=== PATIENT | female | born 1975 | race Caucasian/White ===

== ENCOUNTER → 2020-03-22 12:28 | Outpatient (CLI) | payer OTHER, SELFPAY ==
--- NOTE | 2020-03-22 | DI.US.S_ITS ---
PROCEDURE: US PERIPH VENOUS LOW EXTREM LT INDICATIONS: Chronic embolism and thrombosis TECHNIQUE: Real-time imaging, as well as color and pulse Doppler interrogation, were performed of the lower extremity deep veins from the inguinal ligament to the popliteal fossa. COMPARISON: None. FINDINGS: Partially occlusive thrombus identified in the distal common femoral vein. he superficial femoral and popliteal veins are normally compressible, and free of intraluminal thrombus. Color and pulse Doppler demonstrate normal phasic intraluminal flow. There is normal augmentation response to distal compression maneuver. IMPRESSION: Abnormal study demonstrating partial, nonocclusive thrombus involving the distal left common femoral vein. Dictated by: Myriam Means MD, PhD on 03/22/2020 at 14:09 Approved by: Myriam Means MD, PhD on 03/22/2020 at 14:10
== END ==
PROVIDERS: PCP Physician Assistant Medical; Referring Provider Physician Assistant Medical; Visit Provider Physician Assistant Medical
DX: I82.512 Chronic embolism and thrombosis of left femoral vein (principal)
CPT/HCPCS: 93971

== ENCOUNTER → 2020-07-21 11:35 | Outpatient (CLI) | payer OTHER, SELFPAY ==
[2020-07-21 20:31] LABS: COVID19 - ORCAS (NP or Nasal) Negative (Negative)
== END ==
PROVIDERS: PCP Physician Assistant Medical; Visit Provider Physician Assistant Medical
DX: Z01.818 Encounter for other preprocedural examination (principal)
CPT/HCPCS: U0003

== ENCOUNTER → 2020-09-29 11:58 | Outpatient (CLI) | payer OTHER, SELFPAY ==
--- NOTE | 2020-09-29 11:59 | DI.US.S_ITS ---
PROCEDURE: US PELVIC COMPLETE INDICATIONS: ABNORMAL FINDING IN VASCULAR IMAGING AT TECHNIQUE: Real-time scanning was performed of the pelvic organs, with image documentation. Additional endovaginal scanning was necessary due to incomplete visualization of the adnexal and endometrial structures by transabdominal scanning. COMPARISON: [facility], RG, CT VENOGRAM ABDOMEN / PELVIS W/CONTRA, 07/14/2020, 10:50. FINDINGS: Uterus: The uterus is anteverted and enlarged measuring 11.6 x 6.5 x 7.9 cm. The myometrium is slightly heterogeneous but without dominant mass. The endometrium is diffusely thickened measuring 2.5 cm in width and contains trace amount of fluid at the fundus. No abnormal uterine vascularity. There are numerous nabothian cysts in the cervix resulting in slight prominence of the cervix. No solid cervical masses were seen. Ovaries: Right ovary measures 2.7 x 2.0 x 2.3 cm. Left ovary measures 3.7 x 3.2 x 3.5 cm. The left ovary contains a 3.0 cm simple cyst. Other: No pathologic free abdominal or pelvic fluid. IMPRESSION: 1. Thickened endometrial stripe at side limits of normal. While this may be secondary to patient's point in the menstrual cycle, pathology is not excluded. Correlate with any abnormal bleeding history and consider follow-up in six weeks at a different point in the patient's menstrual cycle. 2. Numerous simple nabothian cysts throughout the cervix. No definite cervical mass. Correlate with Pap smear. 3. 3.0 cm left ovarian cyst. Dictated by: Concetta Snyder M.D. on 09/29/2020 at 18:31 Approved by: Concetta Snyder M.D. on 09/29/2020 at 18:37
== END ==
PROVIDERS: PCP Physician Assistant Medical; Referring Provider Physician Assistant Medical; Visit Provider Physician Assistant Medical
DX: N80.9 Endometriosis, unspecified (principal); N88.8 Other specified noninflammatory disorders of cervix uteri; I82.502 Chronic embolism and thrombosis of unspecified deep veins of left lower extremity; N83.202 Unspecified ovarian cyst, left side
CPT/HCPCS: 76830; 76856

== ENCOUNTER → 2021-02-09 15:53 | Outpatient (CLI) | payer OTHER, SELFPAY ==
[2021-02-09 17:26] LABS: COVID19 -Nasal RAPID Negative (Negative)
== END ==
PROVIDERS: PCP Physician Assistant Medical; Visit Provider Obstetrics & Gynecology
DX: Z01.812 Encounter for preprocedural laboratory examination (principal); Z20.822 Contact with and (suspected) exposure to COVID-19
CPT/HCPCS: 87635

== ENCOUNTER 2021-02-10 08:13 | Inpatient (IN) | payer OTHER, SELFPAY ==
[2021-02-08 08:39] VITALS: BMI 27.1
[2021-02-10] VITALS (19 sets, daily range): BP systolic 78–106; BP diastolic 46–63; PULSE 86–109; RESP 11–24; TEMP 35.8–37.3; O2SAT 8–100; BMI 27.1
--- NOTE | 2021-02-10 | PATH_ITS ---
[facility] Accession Number: [id number] . 01 Material submitted: . uterus - UTERUS, LEFT FALLOPIAN TUBE AND OVARY, RIGHT FALLOPIAN TUBE . 02 Diagnosis: Uterus, Left Fallopian Tube and Ovary, Right Fallopian Tube, Attempted Laparoscopic Supracervical Hysterectomy Converted to Open Abdominal Supracervical Hysterectomy, Left Salpingo-oophorectomy, Right Salpingectomy (Weight 183 grams): Dys-synchronous endometrium; negative for glandular hyperplasia, cytologic atypia, or malignancy. Myometrium with with a minute leiomyoma (approximatley 2 mm) and otherwise no significant histomorphologic abnormality. Uterine serosa with no abnormality by gross examination. Left ovary with a benign serous cyst (3 mm), benign cystic corpora lutea, minute, benign cortical inclusions cysts, and capsular involvement by endometriosis. Complete cross sections of left fallopian tube (clip identifed at gross examination) with patchy adhesions associated with involvement by endometriosis. Complete cross sections of right fallopian tube with benign paratubal cysts, serosal adhesions, and involvement by endometriosis. [facility] 02/14/2021 1211 Local . 02 Electronically signed: . Arline Richard MD, Pathologist NPI- [id number] . 01 Gross description: . Received in formalin labeled with the patient's name and uterus, left ovary and fallopian tube, right fallopian tube is a 183 gram supracervical hysterectomy specimen. The uterus measures 7.3 cm cornu to cornu, 5.8 cm anterior to posterior, and 7.4 cm fundus to lower uterine segment. The attached left fallopian tube measures 10.3 cm in length x 0.6 cm in diameter and the attached left ovary measures 3.0 x 1.8 x 1.4 cm. A clip is present on the left fallopian tube. The right fallopian tube is detached and measures 9.0 cm in length x 0.6 cm in diameter. The serosa is predominantly smooth. No lesions are identified within the endometrial cavity or myometrium. The ovary has a berkowitz-white to berkowitz-yellow cut surface. Quad Stayer sections are submitted as follows: . A1 - Anterior lower uterine segment. A2 - Posterior lower uterine segment. A3 - Anterior endomyometrium. A4 - Posterior endomyometrium. A5 - Left ovary. A6 - Left fallopian tube cross sections and fimbriated end. A7 - Right fallopian tube cross sections and fimbriated end. (ANGELIC:[id number]) /[facility] 02/11/2021 1543 Local . 02 Pathologist provided ICD-10: N85.00, N80.9 . 02 CPT . 960273 Performed at: 01 [facility] Cytology [address] [id number] MD Kane Greer MD Phone: [phone] Performed at: 02 [facility] [address] [place] [id number] MD Ani Hays MD Phone: [phone]
[2021-02-10] MEDS: LACTATED RINGERS 1,000 ML 100 ML IV ×3 (08:28→14:48)
[2021-02-10] MEDS: ACETAMINOPHEN 325 MG TABLET 975 MG PO (08:31)
--- NOTE | 2021-02-10 08:58 | PM.PREOP ---
Pre-operative Note COVID-19 COVID-19 status: Negative Result date/Date tested (Pos, Neg/Pending): 02/09/21 Interval Note History & Physical reviewed/Exam performed by Physician: Yes Changes to H&P: No H&P completed within 30 days and has changed as indicated here:: 02/09/21
[2021-02-10] MEDS: CEFAZOLIN 2 GM/20 ML SYRINGE IV (09:20)
--- NOTE | 2021-02-10 10:02 | SUR.OPER ---
Lithotomy on padded OR bed. [place] Pad Positioner under torso. Head on pillow, arms padded and tucked at sides. Legs secured in padded yellow fins stirrups.
[2021-02-10] MEDS: BUPIVACAINE 0.5% (PF) VIAL 30 ML INJ (10:09)
[2021-02-10] MEDS: EPINEPHrine 1 MG/ML 0.15 MG INJ (10:09)
[2021-02-10] MEDS: ROPIVACAINE 0.2% PF 2 MG/ML 10ML AMP 10 ML INJ (10:11)
--- NOTE | 2021-02-10 12:39 | PM.GYNOP.1 ---
Operative Date/Time/Diagnoses Date of procedure: 02/10/21 Time of procedure: 12:39 Pre-op diagnosis: Severe dysmenorrhea h/o endometriosis Post-op diagnosis: same Procedure & Clinicians Procedure: Procedures Operation Date: 02/10/21 09:15 Actual Procedure Side Surgeon p Laparoscopic Supracervical Hysterectomy W/ Bilateral Salpingectomy-ATTEMPTED, CONVERTED TO OPEN abdominal supracervical hysterectomy, left salpingo-oophorectony, right salpingectomy Kathleen Truong MD Surgeon: Kathleen Truong Residential Electrician: Alden Hess Anesthesia Type: General and Local Operative Notes Findings: 8 week size stock uterus Right adnexal to posterior uterus adhesions Appendix to right adnexal adhesions Left adnexal to posterior uterus and colon adhesions Colon to posterior uterus adhesions Closure Type: primary Specimen(s): right tube, left tube & ovary and uterus Applied: catheter (To continuous drainage) Estimated blood loss (mL): 75 Blood products transfused: none Complications: none Post-operative Condition: stable Disposition: PACU Plan for aftercare: To Acute Care after Recovery
[2021-02-10] MEDS: fentaNYL 100 MCG/2 ML INJ IV ×2 (12:41→13:23)
[2021-02-10] MEDS: METOCLOPRAMIDE 10 MG/2 ML INJ IV (12:41)
[2021-02-10] MEDS: ONDANSETRON 4 MG/2 ML INJ IV ×2 (12:42→18:41)
[2021-02-10] MEDS: hydrOXYzine 50 MG/ML INJ 25 MG IM (13:25)
--- NOTE | 2021-02-10 14:31 | P.OP_ITS ---
Operative Date/Time/Diagnoses Date of procedure: 02/10/21 Time of procedure: 12:37 Pre-op diagnosis: Dysmenorrhea Endometriosis Post-op diagnosis: same Procedure & Clinicians Procedure: Procedures Operation Date: 02/10/21 09:15 Actual Procedure Side Surgeon p Laparoscopic Supracervical Hysterectomy W/ Bilateral Salpingectomy-ATTEMPTED, CONVERTED TO OPEN abdominal supracervical hysterectomy, left salpingo- oophorectony, right salpingectomy Kathleen Truong MD Indications: Dysmenorrhea Endometriosis Surgeon: Kathleen Truong Medical Aides Teacher: Alden Hess Anesthesia Type: General and Local Operative Notes Findings: 8 week size stock uterus Obliteration of the posterior cul-de-sac Right tube adhesed to the uterus Left ovary and tube adhesed to the uterus Colon stuck to the posterior uterus and cervix Appendix adhered to the right ovary Closure Type: primary Specimen(s): right tube, left tube & ovary and uterus Applied: catheter (To continuous drainage) Estimated blood loss (mL): 100 Blood products transfused: none Procedure in detail: The patient was taken to the operating room where she was placed in the dorsal supine position. After adequate general endotracheal anesthesia was achieved, she was placed in the dorsal lithotomy position, and prepped and draped in the usual sterile fashion. A time-out was performed. A bivalve speculum was placed into the vagina and the anterior lip of the cervix was grasped with a single- tooth tenaculum. The cervical os was sequentially dilated until the Zumi uterine manipulator could pass easily into the endometrial cavity. The single- tooth tenaculum was removed from the anterior lip of the cervix. The bivalve speculum was removed from the vagina. Attention was then turned to the abdomen where 6 cc of 0.5% Marcaine with epinephrine were injected in the umbilical fold. A 5 mm incision was made. The Veress needle was placed into the peritoneal cavity, and its placement confirmed by aspiration and drop test. Removed the abdominal cavity was insufflated with 4.0 L of CO2. The Veress needle was removed, and a 5 mm trocar was placed without difficulty. A second incision was made 4 cm lateral to the midline on the left side after 6 cc of 0.5% Marcaine with epinephrine were injected. A 5 mm incision was made. A 5 mm trocar was placed under direct visualization. Assessment of the pelvis and abdomen revealed the findings noted above. Due to the dense adhesions and inability to safely remove the colon from the uterus and take down all of the adhesions, a decision was made to proceed with a laparotomy. The instruments were removed from the abdomen. The CO2 was allowed to escape. The trocars were removed. A Pfannenstiel skin incision was made through the previous incision and carried through to the underlying layer of fascia. The fascia was nicked in the midline at the incision extended bilaterally with the Resendez scissors. The superior aspect of the fascial incision was grasped with the Yessy clamps, e levated, and the underlying rectus muscles dissected off sharply and bluntly. Attention was then turned to the inferior aspect of this incision which in a similar fashion was grasped with the Yessy clamps, elevated, and the underlying rectus muscles dissected off sharply and bluntly. The rectus muscles were in the midline. The peritoneum was identified, grasped between 2 hemostats, and entered sharply with the Metzenbaum scissors. This incision was extended superiorly and inferiorly with good visualization of the bladder. The O'Pawel O'Cervantes retractor was placed into the incision, and the bowel packed away with moist lap sponges. The bladder blade was placed. The uterus was grasped with 4 tooth tenaculum. The bowel was sharply and bluntly taken down off of the posterior uterus using the Metzenbaum scissors and bluntly with fingers. The right tube was grasped with a [place]. The adhesion between the appendix and the right ovary were released from the ovary using the Metzenbaum scissors. The utero-ovarian vessels were clamped, transected, and suture ligated with 0 Vicryl. The mesosalpinx was cauterized all the way down to the fundus of the uterus. The round ligament was doubly clamped, transected, and suture ligated with 0 Vicryl. The broad ligament was doubly clamped, cut, and suture ligated with 0 Vicryl. The bladder flap was gently created using the Metzenbaum scissors and the bladder was taken down off of the lower uterine segment and cervix. Posteriorly the bowel was taken down off of the posterior cervix using the Metzenbaum scissors. The uterine arteries on the right side were clamped, transected, and suture ligated with 0 Vicryl. This was all repeated on the patient's left side after the adhesions were taken down, but the infundibulopelvic ligament on the left side was doubly clamped, cut, and suture ligated with 0 Vicryl. The left ovary was included in the specimen due to the dense adhesions and endometriosis. The round ligament was clamped, transected, and suture ligated with 0 Vicryl. The broad ligament was clamped, transected, and suture ligated with 0 Vicryl. The remainder of the bladder flap was created and the bladder was taken down off the lower uterine segment and cervix. The uterine arteries on the left side were clamped, transected, and suture ligated with 0 Vicryl. The uterus was amputated from the cervix using the 10. Blade. The endocervical canal was extensively cauterized with the Bovie. The cervix was closed with a series of simple interrupted sutures using 0 Vicryl. The pelvis and abdomen were copiously irrigated with warm normal saline. There was a raw base in the posterior cul-de-sac and Gelfoam was placed for hemostasis. The lap sponges were removed from the abdomen. The O'Pawel O'Cervantes retractor was removed from the incision. The peritoneum was closed using 2 0 Vicryl in a running fashion. The fascia was reapproximated using 0 Vicryl in a running fashion. The subcutaneous layer was copiously irrigated with warm normal saline. Six simple interrupted sutures with 3-0 Vicryl were placed to reapproximate the subcutaneous layer. The skin was closed with 4-0 Monocryl in a subcuticular fashion. Steri-Strips and an Aquacel dressing were placed. Sponge, lap, and instrument counts were correct x2. The patient tolerated the procedure well, and was taken to PACU in stable condition. Complications: none Post-operative Condition: stable Disposition: PACU Plan for aftercare: To Acute care after recovery
[2021-02-10] MEDS: KETOROLAC 30 MG/ML VIAL IV ×2 (14:49→20:10)
[2021-02-10] MEDS: OXYCODONE IR 5 MG TABLET PO (16:27)
[2021-02-10] MEDS: IBUPROFEN 600 MG TABLET PO (17:11)
--- NOTE | 2021-02-10 19:34 | PC.NURSE ---
Pt arrived from PACU at approx 1430. Drowsy but oriented. Drsg c/d/i. Valentin draining to gravity. SCD's on. IVF per orders. Supportive Spouse at bedside. Medicating per mar for post-op pain and nausea. Calling appropriately for needs.
[2021-02-10] MEDS: DOCUSATE 100 MG CAPSULE 200 MG PO (20:10)
[2021-02-10] MEDS: OXYCODONE IR 5 MG TABLET 10 MG PO (22:15)
[2021-02-10] MEDS: ACETAMINOPHEN 325 MG TABLET 650 MG PO (22:16)
[2021-02-11] MEDS: LACTATED RINGERS 1,000 ML 100 ML IV ×2 (00:42→09:52)
[2021-02-11] MEDS: KETOROLAC 30 MG/ML VIAL IV ×2 (02:37→07:35)
[2021-02-11 03:00] VITALS: BP 91/50; PULSE 94; RESP 16; TEMP 37.2; O2SAT 98
[2021-02-11 06:25] LABS: Add Manual Diff / Slide Review NO; Basophils Absolute Auto 0 /uL (0-100); Basophils Percent Auto 0.5 % (0-2); Eosinophils Absolute Auto 100 /uL (0-450); Eosinophils Percent Auto 0.9 % (2-4); Hematocrit 32.1 % (36-46); Hemoglobin 11.4 g/dL (12.0-16.0); Lymphocytes Absolute Auto 1200 /uL (1100-4500); Mean Corpuscular HGB Conc 35.6 % (30-36); Mean Corpuscular Hemoglobin 31.8 PG (26-34); Mean Corpuscular Volume 89.4 fL (80-100); Monocytes Absolute Auto 800 /uL (0-900); Monocytes Percent Auto 10.5 % (3-14); Neutrophils Absolute Auto 5400 /uL (1500-7000); Neutrophils Percent Auto 72.1 % (50-75); Platelet Count 164 X10^3/uL (150-400); Red Blood Cell Count 3.59 X10^6/uL (4.0-5.2); Red Cell Distribution Width 12.7 % (11.6-14.8); White Blood Cell Count 7.6 X10^3/uL (4.5-11.0)
[2021-02-11 06:56] LABS: BUN Creatinine Ratio 17.9 (6-22); Blood Urea Nitrogen 10 mg/dL (7-17); Calcium 8.4 mg/dL (8.4-10.2); Carbon Dioxide 31 mmol/L (22-32); Chloride 107 mmol/L (98-107); Estimated Glomerular Filt Rate > 60.0 mL/min (>60); Glucose 98 mg/dL (70-100); HEMOLYSIS < 15 (0-50); Potassium 4.1 mmol/L (3.4-5.1); Sodium 138 mmol/L (137-145)
[2021-02-11 08:46] VITALS: BP 93/56; PULSE 91; RESP 19; TEMP 36.8; O2SAT 98
[2021-02-11] MEDS: DOCUSATE 100 MG CAPSULE 200 MG PO ×2 (09:28→20:21)
[2021-02-11] MEDS: ENOXAPARIN 40 MG/0.4 ML SYRINGE SUBCUT (09:28)
[2021-02-11] MEDS: OXYCODONE IR 5 MG TABLET 10 MG PO ×2 (09:30→14:42)
--- NOTE | 2021-02-11 09:56 | PC.NURSE ---
Patient alert, oriented rates pain to abdomen 5/10 given 10mg oxycodone. WIth assistance patient stood at the side of the bed, denies dizziness. Valentin catheter removed at 0930 patient tolerated well. Patient bathed and assisted back to bed.
--- NOTE | 2021-02-11 12:28 | CM.DANOTE ---
Discharge Assmt Patient is 45yo Female who had hysterectomy performed by Dr. Truong. Patient recovering well and reported pain is managed at this time. Patient resides with spouse and her six year old child at home. Patient reported being fully independent with ADLs and in community. Patient's spouse reported patient has a staff to use as needed for ambulation. Patient reported no concerns for discharge home when medically stable. Patient reported one level home with no issues using stairs. Ins: [employer] P: patient is anticipated to discharge home when medically stable, spouse will provide transportation, ASSISTANT FLOOR COVERING PRINTER asked to provide priority boarding ferry pass at time of discharge. CABLE DRILLER will continue to follow throughout clinical course of admission. Mitchell SARMIENTO Discharge Planning/Care Management CM Discharge Assessment Start: 02/11/21 12:25 Freq: Status: Active Protocol: Document 02/11/21 12:25 JEFFERY (Rec: 02/11/21 12:28 [id number]) Discharge Planning Assessment Assigned Venetian Blind Washer Mitchell WASHINGTONSW DPOA/Assigned Designee Name Spouse Luis Fernando Contact Information [phone] Advance Directives? No History Provided By Patient Has Patient been admitted in last 30 No days? Prior Living Arrangements House Household Members spouse,children Type of transporation used prior to Drives own vehicle admit Independent with ADL's Yes Is patient alert and oriented? Yes Caregiver for Another Yes: 6yo child Barriers to Discharge No Discharge Plan Home Transportation Arrangement Spouse Luis Fernando who requested ferry priority boarding asst Referrals Initiated None needed Whiteboard Updated in Patient Room with Yes name and ext. # of Venetian Blind Washer Review Status In Process Next Review Type Continued Stay Review Pre-Anesthesia Assessment Start: 02/08/21 08:39 Freq: Status: Complete Protocol: Document 02/08/21 08:39 CAB (Rec: 02/08/21 08:46 CAB [id number]) Pre-Anesthesia Assessment Patient Information Reviewed Via Chart Review Comment COVID screen @ 02/09/21 Specialist Seen Glass Checker Primary Language Peruvian Hat Cutter Required No Height 170.18 cm Weight 78.471 kg Body Mass Index (BMI) 27.1 Barriers to Learning None Hx Anesthesia Reactions No Anesthesia Review Requested No Label Stamper No Smoking Status Never smoker Pain Present Pain Reported History of Falling (Recent or History of No ) Patient is completely paralyzed or No completely immobile Mental Status Oriented to own ability Is patient on oxygen? No Hx Sleep Apnea No Currently Taking a Beta [place] No Anti-Coagulant Therapy Yes: ASA 81mg - DVT w/iliac stent placed Has a Easter Bunny No Cardiac Testing No Hx Pacemaker/ICD No Pacemaker Rep Required? No Cardiac Clearance Received Not Applicable Urinary Catheter Present No Hx Urinary Self Catheterization No Diabetes No Patient No Presence of External or Internal Medical Yes: Iliac stent Devices Marital Status Lives With spouse,children Patient Discharge Plan Description Return Home
[2021-02-11] MEDS: ACETAMINOPHEN 325 MG TABLET 650 MG PO (13:25)
--- NOTE | 2021-02-11 14:52 | PC.NURSE ---
AMBULATING LAPS WITH ,VOIDING WITHOUT DIFFICULTY,PASSING FLATUS, IV HL,ADVANCED TO FULL LIQUIDS FOR DINNER
[2021-02-11 19:46] VITALS: BP 94/59; PULSE 99; RESP 16; TEMP 37.2; O2SAT 98
[2021-02-11] MEDS: IBUPROFEN 600 MG TABLET PO (20:21)
[2021-02-11] MEDS: OXYCODONE IR 5 MG TABLET PO (20:21)
[2021-02-11] MEDS: SODIUM CHLORIDE 0.9% FLUSH 10 ML IV (20:25)
[2021-02-12] MEDS: IBUPROFEN 600 MG TABLET PO ×2 (03:32→08:59)
[2021-02-12] MEDS: OXYCODONE IR 5 MG TABLET PO ×2 (03:32→08:12)
[2021-02-12 06:00] VITALS: BP 113/68; PULSE 99; RESP 16; TEMP 37.4; O2SAT 99
--- NOTE | 2021-02-12 07:42 | PM.PNPO.1 ---
Subjective Subjective Date Patient Seen: 02/11/21 Time Patient Seen: 10:15 Interval history: Patient is a 45-year-old 4 para 4 postop day # 1 status post laparoscopy converted to exploratory laparotomy with supracervical hysterectomy/left salpingo-oophorectomy/right salpingectomy and extensive lysis of adhesions Valentin catheter has been removed. She has not voided as of yet. Not passing gas. No nausea or vomiting. Pain is well controlled. Exam Vital Signs (past 8 hours): - 02/12/21 06:00 Temperature 99.4 F Pulse Rate 99 H Respiratory Rate 16 Blood Pressure 113/68 Pulse Oximetry 99 Oxygen Delivery Method Room Air Oxygen Flow Rate 0 Narrative Exam Narrative: Generally: Patient is sitting up in bed, no acute distress Lungs: Clear to auscultation bilaterally Abdomen: Soft and flat. Decreased bowel sounds Incisions: Clean dry and intact with dressings Extremities: Negative Homans, no edema Objective Labs Result Diagrams: 02/11/21 06:09 02/11/21 06:09 [facility] Medical History (Updated 02/10/21 @ 06:53 by Kathleen Truong MD) Abnormal Pap smear of cervix (~2008) Chronic embolism and thrombosis of unspecified deep veins of left lower extremity (~2014) DVT (deep vein thrombosis) in (2014) Dysmenorrhea (~2007) Endometriosis (~2008) May-Thurner syndrome Surgical History (Updated 11/04/20 @ 14:36 by Luisa Woods) Anesthesia History of section S/P insertion of iliac artery stent (~07/2020) Social History household members: spouse and children Smoking Status: Never smoker alcohol intake: never Assessment & Plan Post-op Postoperative Procedures: Procedures Operation Date: 02/10/21 09:15 Actual Procedure Side Surgeon p Laparoscopic Supracervical Hysterectomy W/ Bilateral Salpingectomy-ATTEMPTED, CONVERTED TO OPEN abdominal supracervical hysterectomy, left salpingo-oophorectony, right salpingectomy Kathleen Truong MD Postoperative day: 1 Postoperative status: doing well Postoperative plan: routine post-op care, ambulate, advance diet and voiding trials Time Spent With Patient Time with patient: 15-24 minutes
--- NOTE | 2021-02-12 07:45 | PM.PNPO.1 ---
Subjective Subjective Date Patient Seen: 02/12/21 Time Patient Seen: 07:45 Interval history: Patient is a 45-year-old 4 para 4 postop day # 2 status post laparoscopy that was converted to abdominal supracervical hysterectomy/LSO/right salpingectomy/extensive lysis of adhesions. She has voided without the catheter. She is tolerating an advanced diet. She has ambulated. Her pain is well controlled. No nausea or vomiting. Exam Vital Signs (past 8 hours): - 02/12/21 06:00 Temperature 99.4 F Pulse Rate 99 H Respiratory Rate 16 Blood Pressure 113/68 Pulse Oximetry 99 Oxygen Delivery Method Room Air Oxygen Flow Rate 0 Narrative Exam Narrative: Generally: Patient is sitting up at edge of bed, no acute distress Lungs: Clear to auscultation bilaterally Cardiovascular: Regular rate and rhythm Abdomen: Good bowel sounds in all 4 quadrants Extremities: Negative Homans, no edema Objective Labs Result Diagrams: 02/11/21 06:09 02/11/21 06:09 [facility] Medical History (Updated 02/10/21 @ 06:53 by Kathleen Truong MD) Abnormal Pap smear of cervix (~2008) Chronic embolism and thrombosis of unspecified deep veins of left lower extremity (~2014) DVT (deep vein thrombosis) in (2014) Dysmenorrhea (~2007) Endometriosis (~2008) May-Thurner syndrome Surgical History (Updated 11/04/20 @ 14:36 by Luisa Woods) Anesthesia History of section S/P insertion of iliac artery stent (~07/2020) Social History household members: spouse and children Smoking Status: Never smoker alcohol intake: never Assessment & Plan Post-op Postoperative Procedures: Procedures Operation Date: 02/10/21 09:15 Actual Procedure Side Surgeon p Laparoscopic Supracervical Hysterectomy W/ Bilateral Salpingectomy-ATTEMPTED, CONVERTED TO OPEN abdominal supracervical hysterectomy, left salpingo-oophorectony, right salpingectomy Kathleen Truong MD Postoperative day: 2 Postoperative status: doing well Postoperative plan: discharge Postoperative plan narrative: Discharge to home Follow-up February 23, 2021 on [facility] Patient to call with fever, chills, redness or drainage around the incisions Patient is not to take her baby aspirin while she is doing Lovenox Time Spent With Patient Time with patient: 15-24 minutes
--- NOTE | 2021-02-12 07:47 | PM.DS.1 ---
History of Present Illness History of Present Illness Date Patient Seen: 02/12/21 Time Patient Seen: 07:47 Chief complaint: LAP SUPRACERVICAL HYSTERECTOMY *OPB* Narrative: Patient is a 45-year-old 4 para 4 who presented on 02/10/2021 for a scheduled laparoscopic supracervical hysterectomy. Due to an obliterated posterior cul-de-sac and extensive endometriosis, she was converted to an exploratory laparotomy with abdominal supracervical hysterectomy/left salpingo-oophorectomy/right salpingectomy/extensive lysis of adhesions. Her postoperative course has been fairly unremarkable. Her diet was advanced yesterday. She is passing flatus. No nausea or vomiting. She is ambulating. She has voided without the catheter. Discharge Providers Provider Date of admission: 02/10/21 Discharge Date: 02/12/21 Primary care physician: Ani Elmore PA-C Discharge provider: Kathleen Truong MD Summary Hospital Course Discharge Diagnosis: Dysmenorrhea Severe endometriosis Extensive pelvic adhesions Laparoscopy Exploratory laparotomy with supracervical hysterectomy/LSO/left salpingectomy/extensive lysis of adhesions Hospital Course: Patient is a 45-year-old 4 para 4 who presented on February 10, 2021 for a scheduled laparoscopic supracervical hysterectomy with bilateral salpingectomy. On laparoscopic inspection her posterior cul-de-sac was obliterated and she had extensive bowel to uterine and adnexal adhesions. A decision was made to proceed with exploratory laparotomy. She underwent exploratory laparotomy with supracervical hysterectomy/left salpingo-oophorectomy/right salpingectomy/extensive lysis of adhesions without complication. Her postoperative course was fairly unremarkable. On postop day # 1 her Valentin catheter was removed and she was able to void without the catheter. She was started on clear liquids and advanced. She is passing flatus. No nausea or vomiting. She is ambulating. Her pain is well controlled. Status at Discharge Cognitive/behavioral status at discharge: oriented Functional status at discharge: independent ambulation Overall status at discharge: patient is progressing back to baseline Time Spent with Patient Time spent: Less than 30 minutes Exam Vital Signs (past 8 hours): - 02/12/21 06:00 Temperature 99.4 F Pulse Rate 99 H Respiratory Rate 16 Blood Pressure 113/68 Pulse Oximetry 99 Oxygen Delivery Method Room Air Oxygen Flow Rate 0 Narrative Exam Narrative: Generally: Patient is sitting up on edge of bed, no acute distress Lungs: Clear to auscultation bilaterally Abdomen: Soft and flat. Good bowel sounds in all 4 quadrants. Incisions: Clean dry and intact with bandages Extremities: Negative Homans, no edema Objective Labs Result Diagrams: 02/11/21 06:09 02/11/21 06:09 [facility] Medical History (Updated 02/10/21 @ 06:53 by Kathleen Truong MD) Abnormal Pap smear of cervix (~2008) Chronic embolism and thrombosis of unspecified deep veins of left lower extremity (~2014) DVT (deep vein thrombosis) in (2014) Dysmenorrhea (~2007) Endometriosis (~2008) May-Thurner syndrome Surgical History (Updated 11/04/20 @ 14:36 by Luisa Woods) Anesthesia History of section S/P insertion of iliac artery stent (~07/2020) Social History household members: spouse and children Smoking Status: Never smoker alcohol intake: never Discharge Plan Discharge Plan Patient Disposition: Home Provider Discharge Comment: Call with fever, chills, redness or drainage around the incisions Ibuprofen 600 mg every 6 hours as needed Tylenol 650 mg every 6 hours as needed Discharge orders & Medications Discharge Orders: Discharge (Order); Ordered 02/12/21 Ordered By: Kathleen Truong Prescriptions: New oxycodone 5 mg tablet 5 mg PO Q4H PRN (Reason: pain) Qty: 30 0RF enoxaparin [Lovenox] 40 mg/0.4 mL syringe 40 mg SUBCUT DAILY Qty: 4 3RF Discontinued enoxaparin [Lovenox] 40 mg/0.4 mL syringe 40 mg SUBCUT DAILY Qty: 12 0RF aspirin 81 mg tablet,delayed release (DR/EC) 81 mg PO DAILY 0RF Follow up/Referrals: Kathleen Truong MD [Physician] - 02/23/21 (My office will call to give her the time of her appointment on [facility] on February 23, 2021) Diet/Activity/Treatments Diet: Diet as Tolerated Activity: No heavy lifting. Nothing more than a gal of milk Skin/Wound/Dressing Care Report to your healthcare provider any signs of infection, such as:: chills, fever, increased pain, unusual drainage and unusual redness Dressing: Remove outer pink dressings with attached gauze in 3 days after morning shower Remove brown, Aquacel, dressing on the lower incision on Visit Report/Discharge Packet Instructions: DI for Exploratory Laparotomy, DI for Hysterectomy, DI for Laparoscopy, DI for Prescription Opioid Use Stand Alone Forms: Surgery Discharge Discharge Data Primary Care Provider: Ani Elmore Attending Provider: Kathleen Truong
[2021-02-12] MEDS: DOCUSATE 100 MG CAPSULE 200 MG PO (08:12)
[2021-02-12] MEDS: ENOXAPARIN 40 MG/0.4 ML SYRINGE SUBCUT (08:12)
--- NOTE | 2021-02-12 09:13 | PC.NURSE ---
Went over dc instructions and medications with patient,questions answered. [place] didn't open until 1000 [place]30 ferry. Lovenox rx called to [facility]. Patient taken via [place] to vehicle driven by spouse. Patient had all belongings.
== END 2021-02-12 09:15 | disposition home or self-care (01) | DRG 743 ==
LOC: OR 08:13 → AC 02-11 13:53
PROVIDERS: Admitting Provider Obstetrics & Gynecology; PCP Physician Assistant Medical; Referring Provider Obstetrics & Gynecology; Visit Provider Obstetrics & Gynecology
PROC: 0UT94ZL Resection of Uterus, Supracervical, Percutaneous Endoscopic Approach (ICD-10-PCS; principal; 2021-02-10 09:15)
DX: N80.0 Endometriosis of uterus (principal); N94.6 Dysmenorrhea, unspecified; N73.6 Female pelvic peritoneal adhesions (postinfective); Z20.822 Contact with and (suspected) exposure to COVID-19
CPT/HCPCS: 36415; 58180; 80048; 85025; J0171; J0330; J0690; J1100; J1650; J1885; J2250; J2405; J2704; J2765; J2795; J3010; J3410

== ENCOUNTER → 2021-04-06 11:41 | Outpatient (CLI) | payer OTHER, SELFPAY ==
[2021-02-10 17:01] VITALS: BMI 27.1
== END ==
PROVIDERS: PCP Physician Assistant Medical; Referring Provider Physician Assistant; Visit Provider Physician Assistant
DX: R39.15 Urgency of urination (principal)
CPT/HCPCS: 87077; 87086; 87186

== ENCOUNTER → 2021-06-24 08:40 | Outpatient (CLI) | payer OTHER, SELFPAY ==
[2021-02-10 17:01] VITALS: BMI 27.1
[2021-06-24 19:53] LABS: COVID19 - ORCAS (NP or Nasal) Negative (Negative)
== END ==
PROVIDERS: PCP Physician Assistant Medical; Visit Provider Physician Assistant
DX: Z20.822 Contact with and (suspected) exposure to COVID-19 (principal)
CPT/HCPCS: U0003

== ENCOUNTER → 2023-04-02 10:41 | Outpatient (CLI) | payer OTHER, SELFPAY ==
[2021-06-27 13:25] VITALS: BMI 27.1
--- NOTE | 2023-04-02 11:41 | DI.RAD.S_ITS ---
PROCEDURE: XR CHEST 2V INDICATIONS: Cough TECHNIQUE: 2 views of the chest were acquired. COMPARISON: [facility] ([place] [place], XR CHEST 2V, 06/27/2021, 15:14. FINDINGS: Surgical changes and devices: None. Lungs and pleura: Lungs are clear. No pleural effusions or pneumothorax. Mediastinum: Mediastinal contours are normal. Heart size is normal. Bones and chest wall: No suspicious bony abnormalities. Soft tissues appear unremarkable. IMPRESSION: No acute pulmonary process. Dictated by: Lima Neves M.D. on 04/02/2023 at 13:03 Approved by: Lima Neves M.D. on 04/02/2023 at 13:03
== END ==
PROVIDERS: PCP Physician Assistant Medical; Referring Provider Registered Nurse; Visit Provider Registered Nurse
DX: R05.9 Cough, unspecified (principal)
CPT/HCPCS: 71046

== ENCOUNTER → 2023-07-09 09:38 | Outpatient (CLI) | payer OTHER, SELFPAY ==
[2021-06-27 13:25] VITALS: BMI 27.1
[2023-07-09 20:21] LABS: Add Manual Diff / Slide Review NO; Basophils Absolute Auto 0 /uL (0-100); Basophils Percent Auto 0.4 % (0-2); Eosinophils Absolute Auto 200 /uL (0-450); Eosinophils Percent Auto 6.5 % (2-4); Hematocrit 40.9 % (36-46); Hemoglobin 14.2 g/dL (12.0-16.0); Lymphocytes Absolute Auto 1300 /uL (1100-4500); Lymphocytes Percent Auto 35.4 % (25-40); Mean Corpuscular HGB Conc 34.6 % (30-36); Mean Corpuscular Hemoglobin 30.9 PG (26-34); Mean Corpuscular Volume 89.3 fL (80-100); Monocytes Absolute Auto 300 /uL (0-900); Monocytes Percent Auto 8.5 % (3-14); Neutrophils Absolute Auto 1900 /uL (1500-7000); Neutrophils Percent Auto 49.2 % (50-75); Platelet Count 220 X10^3/uL (150-400); Red Blood Cell Count 4.58 X10^6/uL (4.0-5.2); Red Cell Distribution Width 12.3 % (11.6-14.8); White Blood Cell Count 3.8 X10^3/uL (4.5-11.0)
[2023-07-09 20:27] LABS: Cholesterol 200 mg/dL (140-199); HDL Cholesterol 68 mg/dL (40-60); LDL Cholesterol Calculated 114 mg/dL (<100); Triglycerides 88 mg/dL (35-150)
[2023-07-09 20:35] LABS: Follicle Stimulating Hormone 54.4 mIU/mL; Luteinizing Hormone 46.2 mIU/mL
[2023-07-09 20:54] LABS: TSH w/ Reflex to FT4 0.58 uIU/mL (0.47-4.68)
[2023-07-09 21:56] LABS: Alanine Aminotransferase 31 IU/L (<35); Albumin 4.7 g/dL (3.5-5.0); Alkaline Phosphatase 103 U/L (38-126); Aspartate Aminotransferase 31 IU/L (14-36); BUN Creatinine Ratio 24.3 (6-22); Bilirubin Total 0.6 mg/dL (0.2-1.3); Blood Urea Nitrogen 17 mg/dL (7-17); Calcium 9.5 mg/dL (8.4-10.2); Carbon Dioxide 28 mmol/L (22-32); Chloride 104 mmol/L (98-107); Estimated Glomerular Filt Rate > 60 mL/min (>60); Globulin 2.4 g/dL (1.7-4.1); Glucose 91 mg/dL (70-100); HEMOLYSIS < 15 (0-50); Potassium 3.8 mmol/L (3.4-5.1); Sodium 138 mmol/L (137-145); Total Protein 7.1 g/dL (6.3-8.2)
== END ==
PROVIDERS: PCP Physician Assistant Medical; Visit Provider Physician Assistant Medical
DX: Z12.11 Encounter for screening for malignant neoplasm of colon (principal); Z13.0 Encounter for screening for diseases of the blood and blood-forming organs and certain disorders involving the immune mechanism; Z13.6 Encounter for screening for cardiovascular disorders; Z13.29 Encounter for screening for other suspected endocrine disorder; M79.671 Pain in right foot; R63.5 Abnormal weight gain
CPT/HCPCS: 80053; 80061; 83001; 83002; 84443; 85025

== ENCOUNTER → 2023-07-12 12:01 | Outpatient (CLI) | payer OTHER, SELFPAY ==
[2021-06-27 13:25] VITALS: BMI 27.1
[2023-07-16 20:43] LABS: Fecal Immunochemical Test Negative (Negative)
== END ==
PROVIDERS: PCP Physician Assistant Medical; Visit Provider Physician Assistant Medical
DX: Z12.11 Encounter for screening for malignant neoplasm of colon (principal); Z13.0 Encounter for screening for diseases of the blood and blood-forming organs and certain disorders involving the immune mechanism; Z13.6 Encounter for screening for cardiovascular disorders; Z13.29 Encounter for screening for other suspected endocrine disorder
CPT/HCPCS: 82274

== ENCOUNTER → 2024-07-31 09:44 | Outpatient (CLI) | payer OTHER, SELFPAY ==
[2021-06-27 13:25] VITALS: BMI 27.1
[2024-07-31 19:21] LABS: Add Manual Diff / Slide Review NO; Basophils Absolute Auto 0 /uL (0-100); Basophils Percent Auto 1.2 % (0-2); Eosinophils Absolute Auto 300 /uL (0-450); Eosinophils Percent Auto 6.2 % (2-4); Hematocrit 42.3 % (36-46); Hemoglobin 14.5 g/dL (12.0-16.0); Lymphocytes Absolute Auto 1200 /uL (1100-4500); Lymphocytes Percent Auto 28.7 % (25-40); Mean Corpuscular HGB Conc 34.3 % (30-36); Mean Corpuscular Hemoglobin 31.1 PG (26-34); Mean Corpuscular Volume 90.8 fL (80-100); Monocytes Absolute Auto 300 /uL (0-900); Monocytes Percent Auto 7.4 % (3-14); Neutrophils Absolute Auto 2300 /uL (1500-7000); Neutrophils Percent Auto 56.5 % (50-75); Platelet Count 219 X10^3/uL (150-400); Red Blood Cell Count 4.66 X10^6/uL (4.0-5.2); Red Cell Distribution Width 12.8 % (11.6-14.8); White Blood Cell Count 4.1 X10^3/uL (4.5-11.0)
[2024-07-31 19:32] LABS: Alanine Aminotransferase 44 IU/L (<35); Albumin 4.5 g/dL (3.5-5.0); Albumin Globulin Ratio 1.8 (1.0-2.8); Alkaline Phosphatase 110 U/L (38-126); Aspartate Aminotransferase 43 IU/L (14-36); BUN Creatinine Ratio 24.7 (6-22); Bilirubin Total 0.5 mg/dL (0.2-1.3); Blood Urea Nitrogen 18 mg/dL (7-17); Calcium 9.3 mg/dL (8.4-10.2); Carbon Dioxide 27 mmol/L (22-32); Chloride 104 mmol/L (98-107); Cholesterol 212 mg/dL (140-199); Estimated Glomerular Filt Rate > 60 mL/min (>60); Globulin 2.5 g/dL (1.7-4.1); Glucose 94 mg/dL (70-99); HDL Cholesterol 71 mg/dL (40-60); HEMOLYSIS < 15 (0-50); LDL Cholesterol Calculated 126 mg/dL (<100); Potassium 4.2 mmol/L (3.4-5.1); Sodium 139 mmol/L (137-145); Triglycerides 74 mg/dL (35-150)
[2024-07-31 20:00] LABS: TSH w/ Reflex to FT4 0.62 uIU/mL (0.47-4.68)
== END ==
PROVIDERS: PCP Physician Assistant Medical; Visit Provider Physician Assistant Medical
DX: Z13.29 Encounter for screening for other suspected endocrine disorder (principal); Z12.11 Encounter for screening for malignant neoplasm of colon; Z13.0 Encounter for screening for diseases of the blood and blood-forming organs and certain disorders involving the immune mechanism; Z13.6 Encounter for screening for cardiovascular disorders
CPT/HCPCS: 80053; 80061; 84443; 85025

== ENCOUNTER → 2024-09-10 10:51 | Outpatient (CLI) | payer OTHER, SELFPAY ==
[2021-06-27 13:25] VITALS: BMI 27.1
== END ==
PROVIDERS: PCP Physician Assistant Medical; Visit Provider Physician Assistant Medical
DX: Z91.09 Other allergy status, other than to drugs and biological substances (principal)
CPT/HCPCS: 82785; 86003

== ENCOUNTER → 2024-11-26 14:41 | Outpatient (CLI) | payer OTHER, SELFPAY ==
[2021-06-27 13:25] VITALS: BMI 27.1
== END ==
PROVIDERS: PCP Physician Assistant Medical; Visit Provider Family Medicine
DX: N30.01 Acute cystitis with hematuria (principal)
CPT/HCPCS: 87077; 87086; 87186